=== PATIENT | male | born 1990 | race Caucasian/White ===

== ENCOUNTER 2018-11-21 07:04 | Day surgery (SDC) | payer OTHER ==
[~2018-11-21] VITALS: Ht 172.7 cm; Wt 76.0 kg
[2018-11-21 07:28] VITALS: BP 123/84; PULSE 60; TEMP 98
[2018-11-21 08:30] VITALS: BP 121/80; PULSE 82; TEMP 98.1
--- NOTE | 2018-11-21 08:30 | NUR ---
Patient arrives to [facility] via cart, accompanied by Endo RN Doc and Bri. He is drowsy, but awake and oriented. He ambulates with steady gait to chair in room. Monitoring applied - VSS and WNL on room air. Mom is at the bedside. Bedside report received. Denies any pain or nausea. Gag reflex intact. Offered and receieves water and a muffin. Call light in reach.
[2018-11-21 08:45] VITALS: BP 100/68; PULSE 67
--- NOTE | 2018-11-21 08:45 | NUR ---
Patient is resting comfortably in room. Denies any pain, nausea, or need.
[2018-11-21 09:00] VITALS: BP 103/63; PULSE 78
--- NOTE | 2018-11-21 09:00 | NUR ---
VSS and WNL on room air. Denies any pain, nausea, or need.
--- NOTE | 2018-11-21 09:06 | NUR ---
Dr. Smith at the bedside at this time.
--- NOTE | 2018-11-21 09:26 | NUR ---
Patient has met discharge criteria. He states "I'm ready to go home". PIV removed with catheter intact and hemostasis achieved. Discharge instructions discussed, denies any questions, and verbalizes understanding. Changes to clothing independently. Escorted to exit via wheelchair. Discharged to home with ride in private vehicle at 0926.
[2018-11-21 10:38] VITALS: BP 119/74; PULSE 80
== END 2018-11-21 09:26 | disposition home or self-care (01) ==
LOC: SDCO 07:04
DX: K21.0 Gastro-esophageal reflux disease with esophagitis (principal); K29.30 Chronic superficial gastritis without bleeding; K30 Functional dyspepsia; Z88.1 Allergy status to other antibiotic agents
CPT/HCPCS: J2250; J2405; J3010; J7030